=== PATIENT | male | born 1935 | race Caucasian/White ===

== ENCOUNTER → 2016-08-03 | Outpatient (CLI) | payer BC ==
[~2016-08-03] MED LIST: DICL50TA3 PO; HYT1 PO; MULT-506 PO; OPTIRAY 320 IV PRN; TOBR0.3S OPL; ZCRUNK; [UNRECOGNIZED DRUG - CODE]; [UNRECOGNIZED DRUG - CODE] PO
--- NOTE | 2016-08-03 19:52 | DIAGNOSTIC IMAGING REPORT ---
ULTRASOUND BILATERAL LOWER EXTREMITY VENOUS CLINICAL HISTORY: Coagulopathy. COMPARISON STUDY: No priors. TECHNIQUE: Real-time, grayscale, and color Doppler sonography of the deep veins of the right and left lower extremity was performed from the inguinal crease to the calf. Compression and augmentation were utilized. FINDINGS: There is no sonographic evidence of deep venous thrombosis identified in the right or left lower extremity. The common femoral, superficial femoral, and popliteal veins are patent and normally compressible bilaterally. The greater saphenous vein and the profunda femoris vein at the junction with the common femoral vein are clear in both legs. The visualized calf veins are patent bilaterally. IMPRESSION: There is no sonographic evidence of deep venous thrombosis identified in the right or left lower extremity. Electronically signed by: Elias Jalloh M.D. 08/03/2016 7:50 PM Dictated Date/Time: 08/03/2016 7:49 PM
--- NOTE | 2016-08-03 20:31 | DIAGNOSTIC IMAGING REPORT ---
CT ANGIOGRAM OF THE CHEST CLINICAL HISTORY: Back pain. Elevated D-dimer. COMPARISON STUDY: Chest x-ray dated 08/03/2016. Abdominal CT dated 08/29/2005. TECHNIQUE: Following the IV administration of 119 cc of Optiray 320, CT angiogram of the chest was performed from the upper abdomen to the thoracic inlet utilizing the pulmonary embolus protocol. Images are reviewed in the axial, sagittal, and coronal planes. 3-D MIPS images are created and assessed. IV contrast was administered without complication. Examination is degraded by motion artifact, as well as by streak artifact from the left arm which could not be elevated above the chest. CT DOSE: 519.75 mGy.cm FINDINGS: Thyroid: Imaged portions of the thyroid gland are normal in size and attenuation. Thoracic aorta: There is atherosclerotic calcification of the thoracic aorta. There is mild aneurysmal dilatation of the ascending thoracic aorta which measures up to 4.1 cm. The remainder of the thoracic aorta is normal in caliber. The arch demonstrates standard 3-vessel anatomy. The aorta is not well opacified. Pulmonary vasculature: The pulmonary trunk end main pulmonary arteries are dilated indicating pulmonary artery hypertension. There are no filling defects identified in main, lobar, or proximal segmental pulmonary branches to suggest pulmonary embolus. Evaluation of the peripheral vessels is degraded by motion artifact. Heart: The heart is markedly enlarged and without pericardial effusion. The coronary arteries are densely calcified. Lungs and pleural spaces: Evaluation of the lung parenchyma is degraded by motion artifact. Linear atelectasis versus scarring is present at both lung bases, left greater than right. There is elevation of left hemidiaphragm. No airspace consolidation is seen typical for pneumonia and there is no pleural effusion. Small calcified granulomas are observed. The trachea and central airways appear clear. Mediastinum: There is no mediastinal lymphadenopathy. Melva: Clear. Axillae: There is no axillary lymphadenopathy. Upper abdomen: There is a tiny hiatal hernia. The partially imaged kidneys demonstrate cortical atrophy. A 12 mm ovoid water density lesion in the pancreatic body seen on image #14 and is typical in appearance for a sidebranch IPMN. Skeletal structures: The skeletal structures are osteopenic. Degenerative changes noted throughout the thoracic spine. There is mild hyperkyphosis. No lytic or blastic bony lesions are seen. Arthritic change is seen in the shoulders. IMPRESSION: 1. Streak and motion artifact degraded examination. 2. There is no evidence of pulmonary embolus in the main, lobar, or proximal segmental pulmonary arteries. 3. There is no airspace consolidation typical for pneumonia or pleural effusion. 4. Marked cardiomegaly with evidence of pulmonary artery hypertension. 5. There is mild aneurysmal dilatation of the ascending thoracic aorta which measures up to 4.1 cm. The remainder of the thoracic aorta is normal in caliber. 6. Additional findings as above. Electronically signed by: Elias Jalloh M.D. 08/03/2016 8:30 PM Dictated Date/Time: 08/03/2016 8:23 PM
== END | disposition home or self-care (01) ==
LOC: C.ULTR 18:49
PROVIDERS: ATTEND Family Medicine
DX: R79.1 Abnormal coagulation profile (principal); M54.9 Dorsalgia, unspecified

== ENCOUNTER → 2016-08-03 | Outpatient (CLI) | payer BC ==
[~2016-08-03] MED LIST changes: -OPTIRAY 320 IV PRN
--- NOTE | 2016-08-03 13:05 | DIAGNOSTIC IMAGING REPORT ---
CHEST 2 VIEWS ROUTINE CLINICAL HISTORY: M54.9 COMPARISON STUDY: No previous studies for comparison. FINDINGS: Atelectatic change left base. Lungs otherwise appear clear. Tortuosity thoracic aorta. Diaphragms smooth. IMPRESSION: Atelectasis left base. Electronically signed by: cSott Pascual M.D. 08/03/2016 1:04 PM Dictated Date/Time: 08/03/2016 12:48 PM
== END | disposition home or self-care (01) ==
LOC: C.RAD1850 12:33
PROVIDERS: ATTEND Family Medicine
DX: M54.9 Dorsalgia, unspecified (principal); J98.11 Atelectasis

== ENCOUNTER → 2016-08-07 | Outpatient (CLI) | payer BC ==
[2016-08-07 21:16] LABS: BASO % 0.5 %; BASO ABS # 0.03 K/uL (0-0.2); EOS % 0.7 %; IG% 0.3 %; LYMPH % 20.9 %; LYMPH ABS # 1.21 K/uL (1.2-3.4); MEAN CELL VOLUME 98.3 fL (80-100); MEAN CORPUSCULAR HEMOGLOBIN 34.3 pg (25-34); MEAN PLATELET VOLUME 8.3 fL (7.4-10.4); MONO % 17.9 %; NEUT % 59.7 %; PLATELET COUNT 335 K/uL (130-400); RED BLOOD COUNT 4.17 M/uL (4.7-6.1)
[2016-08-07 21:30] LABS: COMPLETE YES; MEAN CORPUSCULAR HGB CONC 34.9 g/dl (32-36)
[2016-08-07 21:35] LABS: BLOOD UREA NITROGEN 23 mg/dl (7-18); BUN/CREATININE RATIO 16.4 (10-20); CALCIUM 9.4 mg/dl (8.5-10.1); CARBON DIOXIDE 30 mmol/L (21-32); CHLORIDE 101 mmol/L (98-107); GLUCOSE 88 mg/dl (70-99); POTASSIUM 4.5 mmol/L (3.5-5.1); SODIUM 137 mmol/L (136-145); URIC ACID 4.7 mg/dl (2.6-7.2)
--- NOTE | 2016-08-07 21:36 | DIAGNOSTIC IMAGING REPORT ---
LEFT ANKLE MIN 3 VIEWS ROUTINE CLINICAL HISTORY: EFFUSION, LEFT ANKLE, PT WENT TO LAB FIRST pain. Edema. COMPARISON: None. DISCUSSION: Small joint effusion. Several loose fragments within the effusion. Findings suggestive of small old avulsions from the tip of the medial as well as lateral malleolus. Ankle mortise is aligned anatomically. Subtalar joint is intact. There is no evidence for soft tissue swelling. IMPRESSION: Small joint effusion with several small loose bodies. 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 Electronically signed by: Scott Pascual M.D. 08/07/2016 9:35 PM Dictated Date/Time: 08/07/2016 9:32 PM
[2016-08-07 22:24] LABS: LYME DISEASE AB IGG NEG (NEG); LYME DISEASE AB IGM NEG (NEG)
[2016-08-09 13:37] LABS: C-REACTIVE PROT HIGHSEN 82.2 MG/L
== END | disposition home or self-care (01) ==
LOC: C.RAD 20:00
PROVIDERS: ATTEND Family Medicine
DX: M25.472 Effusion, left ankle (principal); M25.572 Pain in left ankle and joints of left foot

== ENCOUNTER → 2017-03-05 | Outpatient (CLI) | payer BC ==
--- NOTE | 2017-03-05 09:32 | DIAGNOSTIC IMAGING REPORT ---
Abdominal aortic ultrasound. CLINICAL HISTORY: ABDOMINAL AORTIC ANEURYSM COMPARISON STUDY: PET CT 12/16/2008. FINDINGS: Moderate calcified plaque within the abdominal aorta. The proximal abdominal aorta measures up to 2.2 cm. The mid abdominal aorta measures up to 2.9 x 2.5 cm. The distal abdominal aorta measures 1.9 cm. Bilateral common iliac arteries measure 1.4 cm. IMPRESSION: Mildly ectatic abdominal aorta which measures up to 2.9 x 2.5 cm. No evidence for aneurysm at this time. Electronically signed by: Vivek Waltre M.D. 03/05/2017 9:31 AM Dictated Date/Time: 03/05/2017 9:28 AM
== END | disposition home or self-care (01) ==
LOC: C.ULTR 08:54
PROVIDERS: ATTEND Family Medicine
DX: I71.4 Abdominal aortic aneurysm, without rupture (principal)

== ENCOUNTER → 2017-08-13 | Day surgery (SDC) | payer BC, OTHER ==
[2017-07-11 14:10] VITALS: Ht 172.7 cm; Wt 68.2 kg
[~2017-08-13] VITALS: Ht 172.7 cm; Wt 68.2 kg
[~2017-08-13] MED LIST changes: +CHOL100010 PO; +CLOR7.5T14 PO; +CYCL10TA6 PO; -DICL50TA3 PO; +HYT/2 PO; -HYT1 PO; +IOPAMIDOL INJ 61% 15 ML VIAL ONE; +LIDOCAINE HCL 1% MPF 5 ML VIAL ONE; +MELA1TAB5 PO; +METO25TA56 PO; -MULT-506 PO; +MULTTAB58 PO; +RIVA1TAB4 PO; +RIZA10TA18 PO; +SODIUM CHLORIDE 0.9% INJ 10 ML VIAL ONE; +SULF800T23 PO; -TOBR0.3S OPL; +TRAM-10 PO; -ZCRUNK; -[UNRECOGNIZED DRUG - CODE]; -[UNRECOGNIZED DRUG - CODE] PO
--- NOTE | 2017-08-13 14:16 | History & Physical Bridge - SC ---
H&P Re-Evaluation Bridge Note: I have examined the patient, reviewed the History & Physical and in the interval since the performance of the History & Physical I have noted the following changes of clinical significance: No changes noted
--- NOTE | 2017-08-13 14:35 | [facility] Post Operative Brief Note ---
Immediate Operative Summary Operative Date Aug 13, 2017. Pre-Operative Diagnosis Lumbar spinal stenosis with neurogenic claudication Post-Operative Diagnosis Same Procedure(s) Performed Lumbar Epidural Steroid Injection Surgeon Dr. Desire Paz System Trainer Surgeon(s) None Estimated Blood Loss 0 Findings Consistent with Post-Op Diagnosis Specimens NA Drains None Anesthesia Type Local Complication(s) none Disposition Disposition:
[2017-08-13 14:36] VITALS: TEMP 36.8
--- NOTE | 2017-08-13 14:36 | Discharge Instructions ---
Discharge Instructions Date of Service Aug 13, 2017. Visit Reason for Visit: Low Back Pain Discharge Discharge Diagnosis / Problem: leg pain Discharge Goals Goal(s): Decrease discomfort, Improve function Activity Recommendations Activity Limitations: resume your previous activity Anesthesia . Post Anesthesia Instructions: If you have had General Anesthesia or IV Sedation: * Do not drive today. * Resume driving when surgeon permits. * Do not make important decisions or sign legal documents today. * Call surgeon for: 1. Temperature elevations greater than 101 degrees F. 2. Uncontrollable pain. 3. Excessive bleeding. 4. Persistent nausea and vomiting. 5. Medication intolerance (nausea, vomiting or rash). * For nausea and vomiting use only clear liquids such as: tea, soda, bouillon until nausea subsides, then gradually increase diet as tolerated. * If you have any concerns or questions, call your surgeon's office. If physician is unavailable and it is an emergency, call 911 or go to the nearest emergency room. . Diet Recommendations Recommended Home Diet: resume previous diet Procedures Procedures Performed: Lumbar Epidural Steroid Injection Pending Studies Studies pending at discharge: no Medical Emergencies . Who to Call and When: Medical Emergencies: If at any time you feel your situation is an emergency, please call 911 immediately. . Non-Emergent Contact Non-Emergency issues call your: Specialist . . "Provider Documentation" section prepared by Lion Paz. .
[2017-08-13 14:54] VITALS: BP 163/122; PULSE 76; O2SAT 98
--- NOTE | 2017-08-14 07:56 | OPERATIVE REPORT ---
DATE OF OPERATION: 08/13/2017 PREOPERATIVE DIAGNOSIS: Lumbar spinal stenosis with neurogenic claudication. POSTOPERATIVE DIAGNOSIS: Same. PROCEDURE: Left paramedian L4-L5 intralaminar epidural steroid injection under fluoroscopic guidance. INDICATIONS: The patient is an 81-year-old white male who has lumbar spinal stenosis with limitations with ambulation. He is scheduled today for an epidural injection is very anxious about the procedure. PHYSICAL EXAMINATION: Pleasant male seated comfortably. He has normal motor and sensory strength. Negative seated straight leg raises. CONSENT: Verbal and written consent was obtained from the patient. Risks and benefits were reviewed. Risks include but are not limited to epidural abscess, epidural hematoma, allergic reaction, dural puncture. The patient wishes to proceed. DESCRIPTION OF PROCEDURE: The patient was taken back to the special procedures room of the [facility], maintained in a prone position. Backside was cleansed with Betadine x3 and a dry sterile dressing was applied. Fluoroscope was used to identify the L4-L5 intralaminar space and overlying skin was anesthetized with 4 mL of lidocaine 1% with a 25 gauge 1/2-inch needle. A 22-gauge 3-1/2 inch Tuohy needle was then directed down towards the intralaminar space. It was advanced under lateral fluoroscopic guidance and loss of resistance was noted at a depth of just under 6 cm. Isovue-300 contrast 1 mL was injected in which demonstrated epidural uptake pattern upon lateral view. He then underwent injection after negative aspiration of 40 mg of Depo-Medrol, 4 mL of preservative free sodium chloride. Injection was well tolerated and reproduced a familiar radicular sensation into the L4 dermatomal distribution of the left lower extremity. DISPOSITION: 1. The patient is taken out into the discharge recovery area where he will be discharged home once discharge criteria have been met. 2. Follow up in the [facility] office in 2-4 weeks. I attest to the content of the Intraoperative Record and any orders documented therein. Any exception s are noted below.
== END | disposition home or self-care (01) ==
LOC: X.SURG 13:25
PROVIDERS: ATTEND Physical Medicine & Rehabilitation
DX: M48.062 Spinal stenosis, lumbar region with neurogenic claudication (principal); Z79.01 Long term (current) use of anticoagulants; Z79.891 Long term (current) use of opiate analgesic; Z79.899 Other long term (current) drug therapy

== ENCOUNTER → 2017-08-22 | Outpatient (CLI) | payer BC ==
[~2017-08-22] MED LIST changes: -IOPAMIDOL INJ 61% 15 ML VIAL ONE; -LIDOCAINE HCL 1% MPF 5 ML VIAL ONE; -SODIUM CHLORIDE 0.9% INJ 10 ML VIAL ONE
--- NOTE | 2017-08-22 08:54 | DIAGNOSTIC IMAGING REPORT ---
CHEST 2 VIEWS ROUTINE CLINICAL HISTORY: 81 years-old Male presenting with DYSPNEA UNSPECIFIED. TECHNIQUE: PA and lateral views of the chest were obtained. COMPARISON: 08/03/2017. FINDINGS: Atherosclerosis of aortic arch. Cardiac silhouette enlarged. Pulmonary arterial enlargement, unchanged. Chronic elevation of the left hemidiaphragm with minimal bandlike opacities at the left lung base, slightly decreased from prior. No new focal opacity. No large effusion or pneumothorax. Degenerative changes of the thoracic spine. Upper abdomen normal. IMPRESSION: 1. Cardiomegaly. No other convincing evidence of acute cardiopulmonary disease. Electronically signed by: Bj Argueta M.D. 08/22/2017 8:53 AM Dictated Date/Time: 08/22/2017 8:51 AM
== END | disposition home or self-care (01) ==
LOC: C.RAD1850 08:38
PROVIDERS: ATTEND Family Medicine
DX: R06.00 Dyspnea, unspecified (principal); I51.7 Cardiomegaly

== ENCOUNTER → 2018-01-02 | Outpatient (CLI) | payer BC | END | disposition home or self-care (01) | LOC: C.LAB1850 13:33 | PROVIDERS: ATTEND Family Medicine Sports Medicine | DX: M79.671 Pain in right foot (principal) ==